=== PATIENT | female | born 1975 | race Caucasian/White ===

== ENCOUNTER 2023-05-21 10:16 | Outpatient (REF) | payer MEDICAID, SELFPAY | END 2023-05-21 10:17 | LOC: LAB 10:16 | PROVIDERS: Visit Provider Obstetrics & Gynecology | DX: A63.0 Anogenital (venereal) warts (principal) | CPT/HCPCS: 88305 ==

== ENCOUNTER 2023-06-01 09:15 | Outpatient (OUT) | payer MEDICAID, SELFPAY ==
--- NOTE | 2023-06-01 09:22 | ECG_ITS ---
[facility] Test Date: 2023-06-01 Pat Name: ITZEL HENRIQUEZ Department: Room: - Gender: Female [employer]: : 1975 Requested By: JIMENA BOYER Order Number: [id number] Reading MD: ARLETTE CESAR Measurements Intervals [place] Rate: 58 P: 59 MD: 205 QRS: 38 QRSD: 97 T: 77 QT: 450 QTc: 444 Interpretive Statements SINUS BRADYCARDIA No previous ECG available for comparison Electronically Signed On 06-04-2023 6:49:06 EDT by ARLETTE CESAR
--- NOTE | 2023-06-01 09:48 | XR_ITS ---
The [address] [address] Patient Name: ITZEL HENRIQUEZ MRN: [id number] date: 1975 Sex: F Assigned Patient Location: [facility] Current Patient Location: [facility] Accession/Order Number: [id number] Exam Date: 06/01/2023 10:00 Report Date: 06/01/2023 12:16 At the request of: JIMENA BOYER Procedure: XR chest 2V EXAM: XR chest 2V HISTORY: Preop exam COMPARISON: None. TECHNIQUE: PA and lateral views of the chest. FINDINGS: The cardiomediastinal silhouette is normal. No focal consolidation is identified. There is no pneumothorax. No pleural effusion is noted. The osseous structures are intact. XR/XR chest 2V IMPRESSION: No acute cardiopulmonary process. Electronically authenticated by: ANIVAL SINGH Date: 06/01/2023 12:16
== END 2023-06-01 09:16 | disposition home or self-care (01) ==
LOC: PST 09:15
PROVIDERS: Visit Provider Obstetrics & Gynecology
DX: Z01.810 Encounter for preprocedural cardiovascular examination (principal); Z01.812 Encounter for preprocedural laboratory examination; R87.610 Atypical squamous cells of undetermined significance on cytologic smear of cervix (ASC-US)
CPT/HCPCS: 71046; 80048; 93005

== ENCOUNTER 2023-06-15 06:03 | Day surgery (SDC) | payer MEDICAID, SELFPAY ==
[2023-06-01 09:56] VITALS: BP 124/78; PULSE 64; TEMP 36.4; O2SAT 94; BMI 41.7
[2023-06-15] VITALS (15 sets, daily range): BP systolic 112–165; BP diastolic 54–101; PULSE 59–84; TEMP 36–36.1; O2SAT 86–96; BMI 41.7
--- OUTSIDE RECORDS SUMMARY | 2023-06-15 06:06 | XMS_ITS | CCD ---
Author Organization [facility] Care Team Providers Care Sap Project Manager Name Role Phone Sudarshan Gill DO Primary Care Provider Claudette Montalvo Primary Care Physician EL VILLALTA Attending Unavailable JIMENA LARKIN Attending Unavailable JIMENA LARKIN Attending Unavailable Jimena Larkin Attending Provider [phone] Elda Mckenna Attending Unavailable Claudette Montalvo Referring Unavailab ROSANA Christopher Admitting Unavailabl e Claudette Montalvo Attending Unavailab le Claudette Montalvo Attending Unavailab le Elda Mckenna Attending Unavailable Mckenna Elda Admitting Unavailable Claudette Montalvo Admitting Unavailab le Claudette Montalvo Attending Unavailab le Jimena Larkin Admitting Unavailable Jimena Larkin Attending Unavailable Allergies Allergy Classification Reported Allergen(s) Allergy Type Date of Onset Reaction(s) Facility (2 sources) Wound Dressing Adhesive Propensity to adverse reactions 4 [facility] (5 sources) Adhesive bandage; Translations: [Adhesive Bandage] Propensity to adverse reactions to substance Eruption of skin (disorder) [facility] (5 sources) traZODone; Translations: [trazodone] Drug Allergy Weal (disorder) [facility] Medications Current Medications Medication Drug Class(es) Dates Sig (Normalized) Sig (Original) [id number] 200 actuat albuterol 0.09 mg/actuat metered dose inhaler (2 sources) beta2-Adrenergic Agonist take 2 puff(s) by inhalation every four hours for wheezing albuterol HFA 90 mcg/act inhaler Inhale 2 puffs every 4 (four) hours if needed for wheezing 0 Active Albuterol (Eqv-ProAir HFA) 90 mcg/inh inhalation aerosol (4 sources) Start: 04-11-2023 take 1 puff(s) by inhalation every six hours Albuterol (Eqv-ProAir HFA) 90 mcg/inh inhalation aerosol 1 puff(s), Inhalation, q6hr, 18 gm, Refill(s) 6, [facility], 166, cm, 04/11/23 14:36:00 EST, Height/Length Dosing, 116.1, kg, 04/11/23 14:36:00 EST, Weight Dosing Start Date: 04/11/23 Status: Ordered amLODIPine 5 mg oral tablet (6 sources) Dihydropyridine Calcium Channel Emiliano Start: 04-11-2023 take 1 tablet by mouth once daily amLODIPine 5 mg Tab 5 mg = 1 tab(s), Oral, Daily, # 90 tab(s), Refills(s) 3, Pharmacy: [facility] 1985, 166, cm, 04/11/23 14:36:00 EST, Height/Length Dosing, 116.1, kg, 04/11/23 14:36:00 EST, Weight Dosing Start Date: 04/11/23 Status: Ordered amLODIPine Besyl ate (NORVASC PO) Take by mouth 0 Active ARIPiprazole 10 mg oral tablet (4 sources) Atypical Antipsychotic Start: 04-11-2023 take 1 tablet by mouth once daily aripiprazole 10 mg Tab 10 mg = 1 tab(s), Oral, Daily, # 90 tab(s), Refills(s) 0, Pharmacy: [facility] 1985, 166, cm, 04/11/23 14:36:00 EST, Height/Length Dosing, 116.1, kg, 04/11/23 14:36:00 EST, Weight Dosing Start Date: 04/11/23 Status: Ordered atorvastatin 80 mg oral tablet (4 sources) HMG-CoA Reductase Inhibitor Start: 04-11-2023 take 1 tablet by mouth once daily atorvastatin 80 mg Tab 80 mg = 1 tab(s), Oral, Daily, # 90 tab(s), Refills(s) 3, Pharmacy: [facility] 1985, 166, cm, 04/11/23 14:36:00 EST, Height/Length Dosing, 116.1, kg, 04/11/23 14:36:00 EST, Weight Dosing Start Date: 04/11/23 Status: Ordered calcium carbonate 1500 mg oral tablet (4 sources) Start: 04-11-2023 take 1 tablet by mouth once daily calcium (as carbonate) 600 mg oral tablet 600 mg = 1 tab(s), Oral, Daily, # 90 tab(s), Refills(s) 3, Pharmacy: [facility] 1986, 166, cm, 04/11/23 14:36:00 EST, Height/Length Dosing, 116.1, kg, 04/11/23 14:36:00 EST, Weight Dosing Start Date: 04/11/23 Status: Ordered DULoxetine 60 mg delayed release oral capsule (4 sources) Serotonin and Norepinephrine Reuptake Inhibitor Start: 04-11-2023 take 2 capsules by mouth once daily duloxetine 60 mg oral delayed release capsule 120 mg = 2 cap(s), Oral, Daily, # 180 cap(s), Refills(s) 0, Pharmacy: [facility] 1986, 166, cm, 04/11/23 14:36:00 EST, Height/Length Dosing, 116.1, kg, 04/11/23 14:36:00 EST, Weight Dosing Start Date: 04/11/23 Status: Ordered fluticasone (4 sources) Corticosteroid Start: 04-11-2023 fluticasone propionate Inhalation, Refills(s) 0 Start Date: 04/11/23 Status: Ordered hydrOXYzine hydrochloride 50 mg oral tablet (4 sources) Antihistamine Start: 04-11-2023 take 1 tablet by mouth three times daily hydrOXYzine hydrochloride 50 mg oral tablet 50 mg = 1 tab(s), Oral, TID, # 270 tab(s), Refills(s) 0, Pharmacy: [facility] 1986, 166, cm, 04/11/23 14:36:00 EST, Height/Length Dosing, 116.1, kg, 04/11/23 14:36:00 EST, Weight Dosing Start Date: 04/11/23 Status: Ordered lysine 1000 mg oral tablet (4 sources) Start: 04-11-2023 take 1 tablet by mouth once daily lysine 1000 mg oral tablet 1,000 mg = 1 tab(s), Oral, Daily, # 60 tab(s), Refills(s) 0 Start Date: 04/11/23 Status: Ordered metFORMIN hydrochloride 500 mg oral tablet (6 sources) Biguanide Start: 04-11-2023 take 1 tablet by mouth twice daily metformin 500 mg Tab 500 mg = 1 tab(s), Oral, BID, # 180 tab(s), Refills(s) 3, Pharmacy: [facility] 1985, 166, cm, 04/11/23 14:36:00 EST, Height/Length Dosing, 116.1, kg, 04/11/23 14:36:00 EST, Weight Dosing Start Date: 04/11/23 Status: Ordered take 1 tablet by mouth in the mo rning metFORMIN (Glucophage) 500 MG tablet Take 500 mg by mouth in the morning and 500 mg in the evening. Take with meals. 0 Active propranolol hydrochloride 40 mg oral tablet (6 sources) beta-Adrenergic Emiliano Start: 04-11-2023 take 1 tablet by mouth twice daily propranolol 40 mg Tab 40 mg = 1 tab(s), Oral, BID, # 180 tab(s), Refills(s) 3, Pharmacy: [facility] 1985, 166, cm, 04/11/23 14:36:00 EST, Height/Length Dosing, 116.1, kg, 04/11/23 14:36:00 EST, Weight Dosing Start Date: 04/11/23 Status: Ordered propranolol (Ind eral) 40 MG tablet Take 20 mg by mouth in the morning and 20 mg before bedtime. 0 Active 60 actuat tiotropium 0.39979 mg/actuat inhalation spray (4 sources) Anticholinergic Start: 04-11-2023 take 2 puff(s) by inhalation once daily Spiriva Respimat 1.25 mcg/inh inhalation aerosol 2 puff(s), Inhalation, Daily, 4 gm, Refill(s) 11, [facility], 166, cm, 04/11/23 14:36:00 EST, Height/Length Dosing, 116.1, kg, 04/11/23 14:36:00 EST, Weight Dosing Start Date: 04/11/23 Status: Ordered triamcinolone acetonide 5 mg/ml topical cream (6 sources) Corticosteroid Start: 04-11-2023 apply 20 g topically twice daily triamcinolone Top 0.5% Crm See Instructions, 20 gm, Refill(s) 0, Topical BID, [facility], 166, cm, 04/11/23 14:36:00 EST, Height/Length Dosing, 116.1, kg, 04/11/23 14:36:00 EST, Weight Dosing Start Date: 04/11/23 Status: Ordered Start: 03-19-2023 End: 03-29-2023 triamcinolone (Kenalog) 0.5 % cream Indications: Dermatitis Apply topically 2 (two) times a day for 10 days Apply to Affected Area Twice per Day 30 g 1 03/19/2023 03/29/2023 Active Vitamin D3 2000 intl units oral tablet (4 sources) Start: 04-11-2023 take 1 tablet by mouth once daily Vitamin D3 2000 intl units oral tablet 50 mcg, Oral, Daily, # 90 tab(s), Refills(s) 3, Pharmacy: [facility] 1986, 166, cm, 04/11/23 14:36:00 EST, Height/Length Dosing, 116.1, kg, 04/11/23 14:36:00 EST, Weight Dosing Start Date: 04/11/23 Status: Ordered Weight Loss Pill/Belly Fat (3 sources) Start: 05-21-2023 Weight Loss Pi ll/Belly Fat Weight Loss Pill/Belly Fat Start Date: 05/21/23 Status: Ordered Problems Problem Classification Problem Date Documented Date Episodic/Chronic Allergic reactions (2 sources) Contact dermatitis; Translations: [Unspecified contact dermatitis, unspecified cause] 03-19-2023 Episodic Anxiety disorders (5 sources) Generalized anxiety disorder; Translations: [Generalized anxiety disorder] Onset: 04-03-2023 Chronic Asthma (5 sources) Asthma; Translations: [Unspecified asthma, uncomplicated] Onset: 04-03-2023 Chronic Chronic obstructive pulmonary disease and bronchiectasis (3 sources) Chronic obstructive lung disease 05-21-2023 Chronic Diabetes mellitus with complications (2 sources) Disorder of nervous system due to type 2 diabetes mellitus; Translations: [Type 2 diabetes mellitus with other diabetic neurological complication] 03-19-2023 Chronic Diabetes mellitus without complication (5 sources) Prediabetes; Translations: [Prediabetes] Onset: 04-11-2023 Episodic Disorders of lipid metabolism (5 sources) Mixed hyperlipidemia; Translations: [Mixed hyperlipidemia] Onset: 04-11-2023 Chronic Essential hypertension (5 sources) Essential hypertension; Translations: [Essential (primary) hypertension] Onset: 04-03-2023 Chronic Mood disorders (5 sources) Severe major depression, single episode, without psychotic features; Translations: [Major depressive disorder, single episode, severe without psychotic features] Onset: 04-11-2023 Chronic Mycoses (2 sources) Onychomycosis; Translations: [Tinea unguium] 03-19-2023 Episodic Other connective tissue disease (2 sources) Pain of toe of left foot; Translations: [Pain in left toe(s)] 03-19-2023 Episodic Other connective tissue disease (2 sources) Pain of toe of right foot; Translations: [Pain in right toe(s)] 03-19-2023 Episodic Other diseases of veins and lymphatics (2 sources) Peripheral venous insufficiency; Translations: [Venous insufficiency (chronic) (peripheral)] 03-19-2023 Episodic Other non-traumatic joint disorders (1 source) Pain of left hip joint; Translations: [Pain in left hip] Onset: 04-11-2023 Episodic Other non-traumatic joint disorders (4 sources) Hip pain 04-11-2023 Episodic Other nutritional; endocrine; and metabolic disorders (5 sources) Body mass index 40+ - severely obese; Translations: [Body mass index (BMI) 40.0-44.9, adult] Onset: 04-11-2023 Chronic Other nutritional; endocrine; and metabolic disorders (5 sources) Morbid obesity; Translations: [Morbid (severe) obesity due to excess calories] Onset: 04-11-2023 Chronic Spondylosis; intervertebral disc disorders; other back problems (5 sources) Low back pain; Translations: [Low back pain, unspecified] Onset: 04-11-2023 Episodic Substance-related disorders (3 sources) Smoker 05-21-2023 Chronic Comment on above: Added secondary to d ocumentation in Social History. Unclassified (4 sources) Patient encounter status 04-03-2023 Results Test Name Value Interpretation Reference Range Facility XR Pelvis 1 or 2 Viewson XR Pelvis 1 or 2 Views Exam Date/Time: 05/28/2023 12:31 EDT Reason for Exam: Pain, Non Traumatic Report IMPRESSION: ADVANCED LEFT HIP OSTEOARTHRITIS. EXAM: XR Pelvis 1 or 2 Views HISTORY: Pelvic pain COMPARISON: None available TECHNIQUE: Single AP film of the pelvis obtained. FINDINGS: No acute displaced pelvic fracture. Sacroiliac joints are within normal limits. Joint space of the right hip is maintained. Advanced degenerative changes of the left hip. Degenerative changes of the lower lumbar spine. Soft tissues appear within normal limits. Ordering Provider: Elda Mckenna FINAL REPORT Dictated: 05/30/2023 3:18 pm Sudarshan Hawk DO Signed (Electronic Signature): 05/30/2023 3:18 pm Signed by: Sudarshan Hawk DO Transcribed by: TERRANCE Technologist: CHRISTOPHER Technical Comments Radiation Dose: Ka,r in mGy = na DAP = na Normal [facility] XR Spine Lumbosacral Minimum 4 Viewson 05-30-2023 XR Spine Lumbosacral Minimum 4 Views Exam Date/Time: 05/28/2023 12:31 EDT Reason for Exam: Back pain Report IMPRESSION: NO ACUTE OSSEOUS ABNORMALITY. DEGENERATIVE CHANGES OF THE LOWER LUMBAR SPINE. EXAMINATION: XR Spine Lumbosacral Minimum 4 Views TECHNIQUE: AP, lateral, bilateral oblique views of the lumbar spine and AP and lateral coned down view of the lumbosacral junction HISTORY: Back pain COMPARISONS: None available. FINDINGS: Lumbar spine alignment is within normal limits. Lumbar vertebral body heights are maintained. Intervertebral disc heights are preserved. Facet arthropathy at L4-5 and L5-S1. No acute fracture. No spondylolysis or spondylolisthesis. Advanced left hip osteoarthritis. Atherosclerotic calcification of the abdominal aorta. Ordering Provider: Elda Mckenna FINAL REPORT Dictated: 05/30/2023 3:17 pm Sudarshan Hawk DO Signed (Electronic Signature): 05/30/2023 3:17 pm Signed by: Sudarshan Hawk DO Transcribed by: TERRANCE Technologist: CHRISTOPHER Technical Comments Radiation Dose: Ka,r in mGy = na DAP = na Normal [facility] CBC w/ Auto Diffon 4 Basophils/100 WBC (Bld) 0.8 % Normal 0.0-2.0 [facility] Comment on above: Performed By: #### 2 907558, [id number], 384729279, 0590019, 6194545, 33619131, 659448699 ####[facility] [address] [place] [address] Basophils/Leukocytes Auto (Bld) [Pure # fraction] 0.1 E9/L Normal 0.0-0.2 [facility] Comment on above: Performed By: #### 2 118318, 73441762, 014591254, 3019424, 7241485, 82232127, 454812846 ####[address] [address] Eosinophils (Bld) [#/Vol] 0.7 E9/L High 0.0-0.5 [facility] Comment on above: Performed By: #### 2 807270, 53226297, 622452955, 4497782, 8071773, 82556305, 533846526 ####[address] [address] Eosinophils/100 WBC (Bld) 7.4 % Normal 0.0-8.0 [facility] Comment on above: Performed By: #### 2 387690, 51589005, 262318501, 6244689, 9794065, 91466393, 985736165 ####[address] [address] Erythrocyte distribution width (RBC) [Ratio] 14.8 % High 10.9-14.2 [facility] Comment on above: Performed By: #### 2 102344, 60741521, 151275407, 3015447, 6436639, 43330807, 160135996 ####[address] [address] Hematocrit (Bld) [Volume fraction] 39.6 % Normal 34.0-46.0 [facility] Comment on above: Performed By: #### 2 592942, 43259158, 583104757, 2070491, 1408286, 49745113, 968261930 ####[address] [address] Hemoglobin (Bld) [Mass/Vol] 12.8 g/dL Normal 12.0-16.0 [facility] Comment on above: Performed By: #### 2 126188, 33852021, 910746266, 7818085, 3616098, 21077119, 784612988 ####[facility] [address] [place] [address] Lymphocytes (Bld) [#/Vol] 3.2 E9/L Normal 1.0-4.0 [facility] Comment on above: Performed By: #### 2 803368, 51761611, 568892779, 3152756, 2599868, 14697266, 000057637 ####[facility] [address] [place] [address] Lymphocytes/100 WBC (Bld) 31.7 % Normal 14.0-50.0 [facility] Comment on above: Performed By: #### 2 733999, 00377632, 132841167, 3638821, 7073297, 89815791, 758054747 ####[address] [address] MCH (RBC) [Entitic mass] 27.0 pg Normal 27.0-34.0 [facility] Comment on above: Performed By: #### 2 582290, 12971204, 427704062, 9135106, 7193704, 18508926, 134578687 ####[address] [address] MCHC (RBC) [Mass/Vol] 32.4 g/dL Normal 31.4-36.0 [facility] Comment on above: Performed By: #### 2 676201, 00036564, 726128114, 6526274, 3506818, 07000225, 346122709 ####[address] [place] [address] MCV (RBC) [Entitic vol] 83.4 fL Normal 80.0-100.0 [facility] Comment on above: Performed By: #### 2 178239, 12907491, 780634111, 8694640, 6456649, 09552719, 219869899 ####[address] [place] [address] Monocytes (Bld) [#/Vol] 0.5 E9/L Normal 0.2-1.0 [facility] Comment on above: Performed By: #### 2 922597, 46284290, 368140488, 5221533, 7381781, 12555779, 457773954 ####[address] [address] Neutrophils (Bld) [#/Vol] 5.6 E9/L Normal 2.0-7.5 [facility] Comment on above: Performed By: #### 2 935733, 53706835, 781846166, 4398173, 0719534, 09874277, 239207367 ####[address] [address] Neutrophils/100 WBC (Bld) 55.0 % Normal 36.0-75.0 [facility] Comment on above: Performed By: #### 2 723872, 65841267, 606091511, 2432597, 1534296, 43198074, 706837124 ####[address] [address] Platelet mean volume (Bld) [Entitic vol] 8.2 fL Normal 6.4-10.8 [facility] Comment on above: Performed By: #### 2 727624, 20889577, 258491066, 5372453, 5861475, 02334088, 738280017 ####[address] [place] [address] Platelets (Bld) [#/Vol] 326.0 E9/L Normal 150.0-500.0 [facility] Comment on above: Performed By: #### 2 361167, 11883799, 157740424, 0035484, 3426237, 15402145, 285930053 ####[address] [place] [address] RBC (Bld) [#/Vol] 4.8 E12/L Normal 4.3-5.9 [facility] Comment on above: Performed By: #### 2 052500, 64925076, 244073136, 3540424, 2733697, 92288379, 221654044 ####[facility] [address] [place] [address] WBC corrected for nucl RBC Auto (Bld) [#/Vol] 10.1 E9/L Normal 4.0-11.0 [facility] Comment on above: Performed By: #### 2 922476, 39452999, 450506782, 3589071, 3734285, 23961197, 975238437 ####[facility] [address] [place] [address] CHEMISTRYOrdered By: SYSTEM SYSTEM on 05-28-2023 25-hydroxyvitamin D3 [Mass/Vol] 30.6 ng/mL Normal 30.0 - 100.0 ng/mL [facility] Chem Albumin [Mass/Vol] 3.7 g/dL Normal 3.3 - 5.0 gm/dL [facility] Albumin/Globulin [Mass ratio] 1.2 {ratio} Normal 1.1 - 2.2 [facility] ALP [Catalytic activity/Vol] 100 [iU]/d High 21 - 98 Int._Unit/L [facility] ALT No additional P-5'-P [Catalytic activity/Vol] 29 [iU]/d Normal 6 - 46 Int._Unit/L [facility] Anion gap [Moles/Vol] 13 mmol/L Normal 6 - 16 mEq/L R emisol Chem AST [Catalytic activity/Vol] 18 [iU]/d Normal 5 - 43 Int._Unit/L [facility] Bilirubin [Mass/Vol] 0.4 mg/dL Normal 0.0 - 1 .1 mg/dL [facility] Calcium [Mass/Vol] 8.6 mg/dL Low 8.9 - 11. 1 mg/dL [facility] Chloride [Moles/Vol] 101 mmol/L Normal 101 - 1 11 mmol/L [facility] Cholesterol [Mass/Vol] 121 mg/dL Normal 120 - 200 mg/dL [facility] Cholesterol in HDL [Mass/Vol] 53 mg/dL Invalid Interpretation Code [facility] Comment on above: Result Comment: '>= 60 LOW RISK' '<= 40 HIGH RISK' Cholesterol in LDL [Mass/Vol] 56 mg/dL Normal <=129mg/dL [facility] Cholesterol in VLDL [Mass/Vol] 32 mg/dL Normal 7 - 40 mg/dL [facility] CO2 [Moles/Vol] 26 mmol/L Normal 21 - 31 mmol/L [facility] Creatinine [Mass/Vol] 0.8 mg/dL Normal 0.5 - 1.3 mg/dL [facility] eGFR 91 mL/min/1.73 m2 Normal >=59mL/min /1. 73 m2 [facility] Globulin (S) [Mass/Vol] 3.0 g/dL Normal 1.4 - 4.0 gm/dL [facility] Glucose [Mass/Vol] 81 mg/dL Normal 55 - 199 mg/dL [facility] Potassium [Moles/Vol] 3.9 mmol/L Normal 3.5 - 5.3 mmol/L [facility] Protein [Mass/Vol] 6.7 g/dL Normal 6.0 - 7.8 gm/dL [facility] Sodium [Moles/Vol] 136 mmol/L Normal 135 - 145 mmol/L [facility] Triglyceride [Mass/Vol] 158 mg/dL High <=149mg/dL [facility] TSH Qn 1.07 m[IU]/L Normal 0.34 - 5.60 mcIU/mL [facility] Urea nitrogen [Mass/Vol] 9 mg/dL Normal 5 - 21 mg/dL [facility] Urea nitrogen/Creatinine [Mass ratio] 11 mg/mg Normal 10 - 20 [facility] CHEMISTRYOrdered By: Tonie Finnegan on 05-28-2023 HbA1c (Bld) [Mass fraction] 5.7 % Normal <=5.9% [facility] ChemAutoSS CMPon 05-28-2023 Albumin [Mass/Vol] 3.7 g/dL Normal 3.3-5.0 [facility] Comment on above: Performed By: #### 2 568313, 23361026, 818613032, 2573784, 9076575, 79406229, 071186946 ####[facility] [address] [place] [address] Albumin/Globulin (S) [Mass conc ratio] 1.2 Normal 1.1-2.2 [facility] Comment on above: Performed By: #### 2 613668, 29284094, 616163427, 9065072, 4252248, 12074428, 715792527 ####[facility] [address] [place] [address] ALP [Catalytic activity/Vol] 100 Int._Unit/L High 21-98 [facility] Comment on above: Performed By: #### 2 376381, 65210784, 241000201, 0758007, 5540126, 40254232, 221357162 ####[facility] [address] [place] [address] ALT No additional P-5'-P [Catalytic activity/Vol] 29 Int._Unit/L Normal 6-46 [facility] Comment on above: Performed By: #### 2 374622, 40931989, 096712387, 2373107, 8292886, 19988503, 689039094 ####[facility] [address] [place] [address] Anion gap [Moles/Vol] 13 mmol/L Normal 6-16 [facility] Comment on above: Performed By: #### 2 757537, 47893081, 845437918, 9900161, 9620391, 48770461, 183985270 ####[facility] [address] [place] [address] AST [Catalytic activity/Vol] 18 Int._Unit/L Normal 5-43 [facility] Comment on above: Performed By: #### 2 262220, 86456315, 346982111, 3697497, 3987049, 08658300, 157751033 ####[facility] [address] [place] [address] Bilirubin [Mass/Vol] 0.4 mg/dL Normal 0.0-1.1 [facility] Comment on above: Performed By: #### 2 484258, 43030089, 110934645, 0983244, 5803688, 49478711, 598788883 ####[facility] [address] [place] [address] Calcium [Mass/Vol] 8.6 mg/dL Low 8.9-11.1 [facility] Comment on above: Performed By: #### 2 136223, 18055033, 338023136, 4284071, 2301930, 69308828, 551749709 ####[facility] [address] [place] [address] Chloride [Moles/Vol] 101 mmol/L Normal 101-111 [facility] Comment on above: Performed By: #### 2 434698, 04595785, 332321574, 8566723, 8630231, 42511502, 879387728 ####[facility] [address] [place] [address] CO2 [Moles/Vol] 26 mmol/L Normal 21-31 [facility] Comment on above: Performed By: #### 2 478072, 86630747, 196080414, 7466304, 6716229, 70070602, 757132966 ####[facility] [address] [place] [address] Creatinine [Mass/Vol] 0.8 mg/dL Normal 0.5-1.3 [facility] Comment on above: Performed By: #### 2 221458, 59817329, 714368804, 4082963, 0423536, 14745268, 371771427 ####[facility] [address] [place] [address] Globulin (S) [Mass/Vol] 3.0 g/dL Normal 1.4-4.0 [facility] Comment on above: Performed By: #### 2 790296, 13336243, 573004011, 6812237, 4820859, 81095434, 917043670 ####[facility] [address] [place] [address] Glucose [Mass/Vol] 81 mg/dL Normal 55-199 [facility] Comment on above: Performed By: #### 2 825281, 30541581, 648774491, 8133744, 7216078, 30185173, 244014599 ####[facility] [address] [place] [address] Potassium [Moles/Vol] 3.9 mmol/L Normal 3.5-5.3 [facility] Comment on above: Performed By: #### 2 881645, 53119586, 768091640, 5892877, 6189485, 37883194, 771795745 ####[facility] [address] [place] [address] Protein [Mass/Vol] 6.7 g/dL Normal 6.0-7.8 [facility] Comment on above: Performed By: #### 2 141090, 26398910, 839654547, 0225667, 6705425, 92374205, 066152381 ####[facility] [address] [place] [address] Sodium [Moles/Vol] 136 mmol/L Normal 135-145 [facility] Comment on above: Performed By: #### 2 509541, 03590388, 457278904, 3266701, 1794250, 31690291, 034277860 ####[facility] [address] [place] [address] Urea nitrogen [Mass/Vol] 9 mg/dL Normal 5-21 [facility] Comment on above: Performed By: #### 2 689533, 21166915, 491149690, 7273076, 5206769, 03365903, 572442200 ####[facility] [address] [place] [address] Urea nitrogen/Creatinine [Mass ratio] 11 No Units Normal 10-20 [facility] Comment on above: Performed By: #### 2 621960, 16286220, 989500832, 2618221, 5860849, 30954485, 550693072 ####[facility] [address] [place] [address] Consent for Treatmenton 05-07 Consent for Treatment [id number] 99#1.00TIFF Normal [facility] Consent for Treatment [id number] 60#1.00TIFF Normal [facility] HEMATOLOGYOrdered By: SYSTEM SYSTEM on 05-28-2023 Basophils/100 WBC (Bld) 0.8 % Normal 0.0 - 2.0 % [facility] Heme Basophils/Leukocytes Auto (Bld) [Pure # fraction] 0.1 E9/L Normal 0.0 - 0.2 E9/L [facility] Heme Eosinophils (Bld) [#/Vol] 0.7 E9/L High 0.0 - 0.5 E9/L [facility] Heme Eosinophils/100 WBC (Bld) 7.4 % Normal 0.0 - 8.0 % [facility] Heme Erythrocyte distribution width (RBC) [Ratio] 14.8 % High 10.9 - 14.2 % Remisol Heme Hematocrit (Bld) [Volume fraction] 39.6 % Normal 34.0 - 46.0 % Remisol Heme Hemoglobin (Bld) [Mass/Vol] 12.8 g/dL Normal 12.0 - 16.0 gm/dL Remisol Heme Lymphocytes (Bld) [#/Vol] 3.2 E9/L Normal 1.0 - 4.0 E9/L Remisol Heme Lymphocytes/100 WBC (Bld) 31.7 % Normal 14.0 - 50.0 % Remisol Heme MCH (RBC) [Entitic mass] 27.0 pg Normal 27.0 - 34.0 pg Remisol Heme MCHC (RBC) [Mass/Vol] 32.4 g/dL Normal 31.4 - 36.0 gm/dL Remisol Heme MCV (RBC) [Entitic vol] 83.4 fL Normal 80.0 - 100.0 fL Remisol Heme Monocytes (Bld) [#/Vol] 0.5 E9/L Normal 0.2 - 1.0 E9/L Remisol Heme Monocytes/100 WBC (Bld) 5.1 % Normal 4.0 - 14.0 % Remisol Heme Neutrophils (Bld) [#/Vol] 5.6 E9/L Normal 2.0 - 7.5 E9/L Remisol Heme Neutrophils/100 WBC (Bld) 55.0 % Normal 36.0 - 75.0 % Remisol Heme Platelet mean volume (Bld) [Entitic vol] 8.2 fL Normal 6.4 - 10.8 fL Remisol Heme Platelets (Bld) [#/Vol] 326.0 E9/L Normal 150.0 - 500.0 E9/L Remisol Heme RBC (Bld) [#/Vol] 4.8 E12/L Normal 4.3 - 5.9 E12/L Remisol Heme WBC corrected for nucl RBC Auto (Bld) [#/Vol] 10.1 E9/L Normal 4.0 - 11.0 E9/L Remisol Heme EypA1ndy 05-28-2023 HbA1c (Bld) [Mass fraction] 5.7 % Normal <=5.9 [facility] Comment on above: Performed By: #### 2 [id number], [id number], [id number], 0107694, 6798922, 87647316, [id number] ####[facility] [address] [place] [address] Lipid Panelon 05-28-2023 Cholesterol [Mass/Vol] 121 mg/dL Normal 120-200 [facility] Comment on above: Performed By: #### 2 463029, [id number], [id number], 2291059, 9148843, [id number], [id number] ####[facility] [address] [place] [address] Cholesterol in HDL [Mass/Vol] 53 mg/dL Invalid Interpretation Code [facility] Comment on above: Result Comment: '>= 60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 and Physical Activity Physical activity is an important part of a healthy lifestyle. If you have asthma, it is important to exercise because physical activity can help you to: Control your asthma. Maintain your weight or lose weight. Increase your energy. Decrease stress and anxiety. Lower your risk of getting sick. Improve your heart health. However, asthma symptoms can flare up when you are physically active or exercising. You can learn how to control your asthma and prevent symptoms during exercise. This will help you remain physicallyactive. How can asthma affect my ability to be physically active? When you have asthma, physical activity can cause you to have symptoms such as: Wheezing. This may sound like whistling while breathing. A feeling of tightness in the chest, or chest pain. A sore throat. Coughing. Shortness of breath. Tiredness (fatigue) with minimal activity. Increased sputum production. What actions can I take to prevent asthma problems during physical activity? Start by sticking to your daily asthma medicine regimen. Keeping your asthma under control will allow you to enjoy exercise and sports participation. Asthma action plan Follow the asthma action plan set by your health care provider. Your personal asthma plan may include: Taking your daily controller (maintenance) asthma medicines as told by your health care provider. Using your rescue inhaler before exercise as told by your health care provider. Avoiding your asthma triggers, except physical activity. Triggers may include cold air, dust, pollen, pet dander, and air pollution. Being aware of worsening symptoms. Tracking your asthma control. Using a peak flow meter. Knowing when to seek emergency care. Proper breathing During exercise, follow these tips for proper breathing: Breathe in before starting the exercise and breathe out during the part of the exercise that takes the most effort. Take slow breaths. Pace yourself. Do not try to go too fast. While breathing out, purse your lips. Before beginning any exercise program or new activity, talk with your health care provider. Pulmonary rehabilitation Ask your health care provider about signing up for a pulmonary rehabilitation program. Benefits of this type of program include: Education on lung diseases. Classes that teach you how to exercise and be more active while decreasing your shortness of breath. A group setting that allows you to talk with others who have asthma. General information Exercise indoors when the air is dry or during allergy season. Try to breathe in warm, moist air by wearing a scarf loosely over your nose and mouth or breathing only through your nose. Spend a few minutes warming up before you exercise or begin an activity or workout. Cool down after exercise. What should I do if my asthma symptoms get worse? Contact your health care provider if your asthma symptoms are getting worse. Your asthma is gettingworse if: You have symptoms more often. Your symptoms are more severe. Your symptoms get worse at night and make you lose sleep. Your peak flow number is lower than your personal best or changes from day to day. Your asthma medicines do not work as well as they used to. You use your rescue inhaler more often. If you use your rescue inhaler more than 2 days a week, your asthma is not well controlled. You go to the emergency room or see your health care provider because of an asthma attack. Where can I get more information? Ask your health care provider about asthma support groups in your area. [place] [employer]: lung.org National Heart, Lung, and Blood [place]: nhlbi.nih.gov Centers for Disease Control and Prevention: cdc.gov Contact a health care provider if: You have trouble walking and talking because you are out of breath. Get help right away if: Your lips or fingernails are blue. You are not able to breathe or catch your breath. These symptoms may represent a serious problem that is an emergency. Do not wait to see if the symptoms will go away. Get medical help right away. Call your local emergency services (911 in the [place] Do not drive yourself to the hospital. Summary Physical activity is an important part of a healthy lifestyle. However, if you have asthma, your symptoms can flare up during exercise or physical activity. You can prevent problems during physical activity by following your asthma action plan, doing proper breathing, and enrolling in a pulmonary rehabilitation program. Talk with your health care provider before starting any exercise program or new activity. This information is not intended to replace advice given to you by your health care provider. Make sure you discuss any questions you have with your health care provider. Document Revised: 03/14/2021 Document Reviewed: 03/14/2021 [employer] Patient Education 2022 [employer]. 04/03/2023 10:06:24 Asthma Action Plan, Adult Asthma Action Plan, Adult An asthma action plan helps you understand how to manage your asthma and what to do when you have an asthma attack. The action plan is a color-coded plan that lists the symptoms that indicate whetheror not your condition is under control and what actions to take. If you have symptoms in the green zone, you are doing well. If you have symptoms in the yellow zone, you are having problems. If you have symptoms in the red zone, you need medical care right away. Follow the plan that you and your health care provider develop. Review your plan with your health care provider at each visit. What triggers your asthma? Knowing the things that can trigger an asthma attack or make your asthma symptoms worse is very important. Talk to your health care provider about your asthma triggers and how to avoid them. Record your known asthma triggers here: What is your personal best peak flow reading? If you use a peak flow meter, determine your personal best reading. Record it here: Green zone This zone means that your asthma is under control. You may not have any symptoms while you are in the green zone. This means that you: Have no coughing or wheezing, even while you are working or playing. Sleep through the night. Are breathing well. Have a peak flow reading that is above (80% of your personal best or greater). If you are in the green zone, continue to manage your asthma as directed. Take these medicines every day: ?Controller medicine and dosage: ?Controller medicine and dosage: ?Controller medicine and dosage: ?Controller medicine and dosage: Before exercise, use this reliever or rescue medicine: Call your health care provider if you are using a reliever or rescue medicine more than 2 3 times aweek. Yellow zone Symptoms in this zone mean that your condition may be getting worse. You may have symptoms that interfere with exercise, are noticeably worse after exposure to triggers, or are worse at the first sign of a cold (upper respiratory infection). These may include: Waking from sleep. Coughing, especially at night or first thing in the morning. Mild wheezing. Chest tightness. A peak flow reading that is to (50 79% of your personal best). If you have any of these symptoms: Add the following medicine to the ones that you use daily: ?Reliever or rescue medicine and dosage: ?Additional medicine and dosage: Call your health care provider if: You remain in the yellow zone for hours. You are using a reliever or rescue medicine more than 2 3 times a week. Red zone Symptoms in this zone mean that you should get medical help right away. You will likely feel distressed and have symptoms at rest that restrict your activity. You are in the red zone if: You are breathing hard and quickly. Your nose opens wide, your ribs show, and your neck muscles become visible when you breathe in. Your lips, fingers, or toes are a bluish color. You have trouble speaking in full sentences. Your peak flow reading is less than (less than 50% of your personal best). Your symptoms do not improve within 15 20 minutes after you use your reliever or rescue medicine (bronchodilator). If you have any of these symptoms: These symptoms represent a serious problem that is an emergency. Do not wait to see if the symptomswill go away. Get medical help right away. Call your local emergency services (911 in the [place] Donot drive yourself to the hospital. Use your reliever or rescue medicine. ?Start a nebulizer treatment or take 2 4 puffs from a metered-dose inhaler with a spacer. ?Repeat this action every 15 20 minutes until help arrives. Where to find more information You can find more information about asthma from: Centers for Disease Control and Prevention: www.cdc.gov [place] [employer]: www.lung.org This information is not intended to replace advice given to you by your health care provider. Make sure you discuss any questions you have with your health care provider. Document Revised: 03/17/2021 Document Reviewed: 03/17/2021 [employer] Patient Education 2022 [employer]. 04/03/2023 10:06:20 Hypertension, Adult Hypertension, Adult High blood pressure (hypertension) is when the force of blood pumping through the arteries is too strong. The arteries are the blood vessels that carry blood from the heart throughout the body. Hypertension forces the heart to work harder to pump blood and may cause arteries to become narrow or stiff. Untreated or uncontrolled hypertension can lead to a heart attack, heart failure, a stroke, kidney disease, and other problems. A blood pressure reading consists of a higher number over a lower number. Ideally, your blood pressure should be below 120/80. The first ( top ) number is called the systolic pressure. It is a measure of the pressure in your arteries as your heart beats. The second ( bottom ) number is called the diastolic pressure. It is a measure of the pressure in your arteries as the heart relaxes. What are the causes? The exact cause of this condition is not known. There are some conditions that result in high bloodpressure. What increases the risk? Certain factors may make you more likely to develop high blood pressure. Some of these risk factorsare under your control, including: Smoking. Not getting enough exercise or physical activity. Being overweight. Having too much fat, sugar, calories, or salt (sodium) in your diet. Drinking too much alcohol. Other risk factors include: Having a personal history of heart disease, diabetes, high cholesterol, or kidney disease. Stress. Having a family history of high blood pressure and high cholesterol. Having obstructive sleep apnea. Age. The risk increases with age. What are the signs or symptoms? High blood pressure may not cause symptoms. Very high blood pressure (hypertensive crisis) may cause: Headache. Fast or irregular heartbeats (palpitations). Shortness of breath. Nosebleed. Nausea and vomiting. Vision changes. Severe chest pain, dizziness, and seizures. How is this diagnosed? This condition is diagnosed by measuring your blood pressure while you are seated, with your arm resting on a flat surface, your legs uncrossed, and your feet flat on the floor. The cuff of the bloodpressure monitor will be placed directly against the skin of your upper arm at the level of your heart. Blood pressure should be measured at least twice using the same arm. Certain conditions can cause a difference in blood pressure between your right and left arms. If you have a high blood pressure reading during one visit or you have normal blood pressure with other risk factors, you may be asked to: Return on a different day to have your blood pressure checked again. Monitor your blood pressure at home for 1 week or longer. If you are diagnosed with hypertension, you may have other blood or imaging tests to help your health care provider understand your overall risk for other conditions. How is this treated? This condition is treated by making healthy lifestyle changes, such as eating healthy foods, exercising more, and reducing your alcohol intake. You may be referred for counseling on a healthy diet and physical activity. Your health care provider may prescribe medicine if lifestyle changes are not enough to get your blood pressure under control and if: Your systolic blood pressure is above 130. Your diastolic blood pressure is above 80. Your personal target blood pressure may vary depending on your medical conditions, your age, and other factors. Follow these instructions at home: Eating and drinking Eat a diet that is high in fiber and potassium, and low in sodium, added sugar, and fat. An exampleof this eating plan is called the DASH diet. DASH stands for Dietary Approaches to Stop Hypertension. To eat this way: ?Eat plenty of fresh fruits and vegetables. Try to fill one half of your plate at each meal with fruits and vegetables. ?Eat whole grains, such as whole-wheat pasta, brown rice, or whole-grain bread. Fill about one fourth of your plate with whole grains. ?Eat or drink low-fat dairy products, such as skim milk or low-fat yogurt. ?Avoid fatty cuts of meat, processed or cured meats, and poultry with skin. Fill about one fourth of your plate with lean proteins, such as fish, chicken without skin, beans, eggs, or tofu. ?Avoid pre-made and processed foods. These tend to be higher in sodium, added sugar, and fat. Reduce your daily sodium intake. Many people with hypertension should eat less than 1,500 mg of sodium a day. Do not drink alcohol if: ?Your health care provider tells you not to drink. ?You are , may be , or are planning to become . If you drink alcohol: ?Limit how much you have to: ?0 1 drink a day for women. ?0 2 drinks a day for men. ?Know how much alcohol is in your drink. In the [place] one drink equals one 12 oz bottle of beer (355 mL), one 5 oz glass of wine (148 mL), or one 1 oz glass of hard liquor (44 mL). Lifestyle Work with your health care provider to maintain a healthy body weight or to lose weight. Ask what an ideal weight is for you. Get at least 30 minutes of exercise that causes your heart to beat faster (aerobic exercise) most days of the week. Activities may include walking, swimming, or biking. Include exercise to strengthen your muscles (resistance exercise), such as Pilates or lifting weights, as part of your weekly exercise routine. Try to do these types of exercises for 30 minutes at least 3 days a week. Do not use any products that contain nicotine or tobacco. These products include cigarettes, chewing tobacco, and vaping devices, such as e-cigarettes. If you need help quitting, ask your health careprovider. Monitor your blood pressure at home as told by your health care provider. Keep all follow-up visits. This is important. Medicines Take sjqu-[id number]-[id number] and prescription medicines only as told by your health care provider. Follow directions carefully. Blood pressure medicines must be taken as prescribed. Do not skip doses of blood pressure medicine. Doing this puts you at risk for problems and can makethe medicine less effective. Ask your health care provider about side effects or reactions to medicines that you should watch for. Contact a health care provider if you: Think you are having a reaction to a medicine you are taking. Have headaches that keep coming back (recurring). Feel dizzy. Have swelling in your ankles. Have trouble with your vision. Get help right away if you: Develop a severe headache or confusion. Have unusual weakness or numbness. Feel faint. Have severe pain in your chest or abdomen. Vomit repeatedly. Have trouble breathing. These symptoms may be an emergency. Get help right away. Call 911. Do not wait to see if the symptoms will go away. Do not drive yourself to the hospital. Summary Hypertension is when the force of blood pumping through your arteries is too strong. If this condition is not controlled, it may put you at risk for serious complications. Your personal target blood pressure may vary depending on your medical conditions, your age, and other factors. For most people, a normal blood pressure is less than 120/80. Hypertension is treated with lifestyle changes, medicines, or a combination of both. Lifestyle changes include losing weight, eating a healthy, low-sodium diet, exercising more, and limiting alcohol. This information is not intended to replace advice given to you by your health care provider. Make sure you discuss any questions you have with your health care provider. Document Revised: 11/29/2021 Document Reviewed: 11/29/2021 [employer] Patient Education 2022 [employer]. 04/03/2023 10:06:15 Blood Glucose Monitoring, Adult Blood Glucose Monitoring, Adult Monitoring your blood sugar (glucose) is an important part of managing your diabetes. Blood glucosemonitoring involves checking your blood glucose as often as directed and keeping a log or record ofyour results over time. Checking your blood glucose regularly and keeping a blood glucose log can: Help you and your health care provider adjust your diabetes management plan as needed, including your medicines or insulin. Help you understand how food, exercise, illnesses, and medicines affect your blood glucose. Let you know what your blood glucose is at any time. You can quickly find out if you have low bloodglucose (hypoglycemia) or high blood glucose (hyperglycemia). Your health care provider will set individualized treatment goals for you. Your goals will be basedon your age, other medical conditions you have, and how you respond to diabetes treatment. Generally, the goal of treatment is to maintain the following blood glucose levels: Before meals (preprandial): 80 130 mg/dL (4.4 7.2 mmol/L). After meals (postprandial): below 180 mg/dL (10 mmol/L). A1C level: less than 7%. Supplies needed: Blood glucose meter. Test strips for your meter. Each meter has its own strips. You must use the strips that came with your meter. A needle to prick your finger (lancet). Do not use a lancet more than one time. A device that holds the lancet (lancing device). A journal or log book to write down your results. How to check your blood glucose Checking your blood glucose 1.Wash your hands for at least 20 seconds with soap and water. 2.Prick the side of your finger (not the tip) with the lancet. Do not use the same finger consecutively. 3.Gently rub the finger until a small drop of blood appears. 4.Follow instructions that come with your meter for inserting the test strip, applying blood to thestrip, and using your blood glucose meter. 5.Write down your result and any notes in your log. Using alternative sites Some meters allow you to use areas of your body other than your finger (alternative sites) to test your blood. The most common alternative sites are the forearm, the thigh, and the palm of your hand. Alternative sites may not be as accurate as the fingers because blood flow is slower in those areas. This means that the result you get may be delayed, and it may be different from the result that you would get from your finger. Use the finger only, and do not use alternative sites, if: You think you have hypoglycemia. You sometimes do not know that your blood glucose is getting low (hypoglycemia unawareness). General tips and recommendations Blood glucose log Every time you check your blood glucose, write down your result. Also write down any notes about things that may be affecting your blood glucose, such as your diet and exercise for the day. This information can help you and your health care provider: ?Look for patterns in your blood glucose over time. ?Adjust your diabetes management plan as needed. Check if your meter allows you to download your records to a computer or if there is an olvin for [employer]. Most glucose meters store a record of glucose readings in the meter. If you have type 1 diabetes: Check your blood glucose 4 or more times a day if you are on intensive insulin therapy with multiple daily injections (MDI) or if you are using an insulin pump. Check your blood glucose: ?Before every meal and snack. ?Before bedtime. Also check your blood glucose: ?If you have symptoms of hypoglycemia. ?After treating low blood glucose. ?Before doing activities that create a risk for injury, like driving or using machinery. ?Before and after exercise. ?Two hours after a meal. ?Occasionally between 2:00 a.m. and 3:00 a.m., as directed. You may need to check your blood glucose more often, 6 10 times per day, if: ?You have diabetes that is not well controlled. ?You are ill. ?You have a history of severe hypoglycemia. ?You have hypoglycemia unawareness. If you have type 2 diabetes: Check your blood glucose 2 or more times a day if you take insulin or other diabetes medicines. Check your blood glucose 4 or more times a day if you are on intensive insulin therapy. Occasionally, you may also need to check your glucose between 2:00 a.m. and 3:00 a.m., as directed. Also check your blood glucose: ?Before and after exercise. ?Before doing activities that create a risk for injury, like driving or using machinery. You may need to check your blood glucose more often if: ?Your medicine is being adjusted. ?Your diabetes is not well controlled. ?You are ill. General tips Make sure you always have your supplies with you. After you use a few boxes of test strips, adjust (calibrate) your blood glucose meter by following instructions that came with your meter. If you have questions or need help, all blood glucose meters have a 24-hour hotline phone number available that you can call. Also contact your health care provider with questions or concerns you mayhave. Where to find more information The [place] [employer]: www.diabetes.org The Association of [employer] Education Specialists: www.diabeteseducator.org Contact a health care provider if: Your blood glucose is at or above 240 mg/dL (13.3 mmol/L) for 2 days in a row. You have been sick or have had a fever for 2 days or longer, and you are not getting better. You have any of the following problems for more than 6 hours: ?You cannot eat or drink. ?You have nausea or vomiting. ?You have diarrhea. Get help right away if: Your blood glucose is lower than 54 mg/dL (3 mmol/L). You become confused, or you have trouble thinking clearly. You have difficulty breathing. You have moderate or large ketone levels in your urine. These symptoms may represent a serious problem that is an emergency. Do not wait to see if the symptoms will go away. Get medical help right away. Call your local emergency services (911 in the [place] Do not drive yourself to the hospital. Summary Monitoring your blood glucose is an important part of managing your diabetes. Blood glucose monitoring involves checking your blood glucose as often as directed and keeping a log or record of your results over time. Your health care provider will set individualized treatment goals for you. Your goals will be basedon your age, other medical conditions you have, and how you respond to diabetes treatment. Every time you check your blood glucose, write down your result. Also, write down any notes about things that may be affecting your blood glucose, such as your diet and exercise for the day. This information is not intended to replace advice given to you by your health care provider. Make sure you discuss any questions you have with your health care provider. Document Revised: 10/20/2020 Document Reviewed: 10/20/2020 [employer] Patient Education 2022 [employer]. Follow Up Care 03/06/2023 10:50:51 With:Claudette Rowan Address: [address] [place] [address] [place] [address]- When:Within 6 Month(s) Comments:f/u preDM, HTN, ENA/MDD [facility] 02-12-2024 History of Present illness Narrative* El Villalta DPM FACFAS - 03/19/2023 10:40 AM EST Images from the original note were not included. patient: Itzel Samuel : 1975 PCP: Sudarshan Gill, DO SUBJECTIVE This is a 47 y.o. female diabetic patient presents today chief complaint of painful elongated nailsdigits 1 through 10 the cause marked limitation in ambulation due to pain and pressure from shoe gear. The patient states he has been attempting to control his blood glucose levels with regular visits to his primary care physician. Patient is also complaining of bilateral dry scaly skin itches at times and occasionally fissures Allergies: Allergies Allergen Reactions Pedi-Pre Tape [place] [Wound Dressing Adhesive] Rash Past Medical History: Past Medical History: Diagnosis Date Diabetes mellitus ([facility]) Hypertension ([facility]) Medications: Current Outpatient Medications: albuterol HFA 90 mcg/act inhaler, Inhale 2 puffs every 4 (four) hours if needed for wheezing, Disp:, Rfl: amLODIPine Besylate (NORVASC PO), Take by mouth, Disp: , Rfl: metFORMIN (Glucophage) 500 MG tablet, Take 500 mg by mouth in the morning and 500 mg in the evening. Take with meals., Disp: , Rfl: propranolol (Inderal) 40 MG tablet, Take 20 mg by mouth in the morning and 20 mg before bedtime., Disp: , Rfl: triamcinolone (Kenalog) 0.5 % cream, Apply topically 2 (two) times a day for 10 days Apply to Affected Area Twice per Day, Disp: 30 g, Rfl: 1 Review of systems: Constitutional: Denies fever, chills, nausea, vomiting GI: Denies abdominal pain, cramping, loose stool, gastric ulcers Musculoskeletal: Denies low back pain, knee pain, systemic arthritis Neurologic: Denies burning, tingling, transient paralysis OBJECTIVE Physical Examination: DERM: Positive hair growth to b/l feet with good skin turgor noted. Negative openings in skin. No macerations noted interdigitally. Web spaces were clean and dry. No ulcerations were noted. Mild edema noted to bilateral lower extremities ulcerations noted mild dry scaly skin in a moccasin like distribution bilaterally Nails 1 through 10 were thickened elongated yellow and crumbly with subungual debris. They were painful to palpation 07250 on the right 52317 on the left. VASC: DP /PT were nonpalpable bilateral. Capillary refill time < 3 seconds Digits 1-5 bilateral NEURO: Machias Fei 5.07 monofilament was diminished B/L. Vibratory sensation was diminished b/l. Mild peripheral neuropathy noted in a stocking- glove orientation Musculoskeletal: Muscle strength was +5 over 5 all intrinsic and extrinsic muscles tested. ASSESSMENT 1. Type II diabetes mellitus with neurological manifestations (CMS/HCC) 2. Onychomycosis 3. Pain in left toe(s) 4. Pain in right toe(s) 5. Contact dermatitis and eczema 6. Venous insufficiency (chronic) (peripheral) PLAN The patient was educated on proper diabetic foot care. There educated on the etiology of onychomycosis. Also educated on performing regular inspections of the feet. [facility] to monitor the glucose levels as well. Today the nails were debrided both inlength and thickness 1 through 10. I discussed use of compression stockings as well as elevation. Irecommended topical Lac-Hydrin 12 percent to be applied daily. Return to clinic 2 months CLAUDY Langston documented in this encounterNOSt. [facility] + Plan note Future Appointments Appointment Date:07/04/2023 11:00:00 AM Scheduled Provider:Claudette Rowan Location:[facility] Appointment Type: Open Future Scheduled Tests Laboratory* HgbA1c 04/11/23 * TSH With T4fr Reflex 04/11/23 * Vitamin D 25 Hydroxy 04/11/23 * CBC w/ Auto Diff 04/11/23 * Comprehensive Metabolic Panel 04/11/23 * Lipid Panel 04/11/23 [facility] Evaluation + Plan note Future Appointments Appointment Date:06/19/2023 02:15:00 PM Scheduled Provider: Location:[facility] Appointment Type:Surgery FT Appointment Date:07/04/2023 11:00:00 AM Scheduled Provider:Claudette Rowan Location:[facility] Appointment Type:FM Open Appointment Date:07/04/2023 12:45:00 PM Scheduled Provider:Elda Mckenna PA-C Location:[facility] App[facility]ment Type:[facility] Management - [facility] Diagnosis Type II diabetes mellitus with neurological manifestations (CMS/HCC)- Primary Type II or unspecified type diabetes mellitus with neurological manifestations, not stated as uncontrolled Onychomycosis Dermatophytosis of nail Pain in left toe(s) Pain in right toe(s) Contact dermatitis and eczema Venous insufficiency (chronic) (peripheral) Unspecified venous (peripheral) insufficiency documented in this encounter [facility] noteNo assessment information availableSelect Medical [facility] Work Phone: Hospital course Narrative No data available for this section [facility] Hospital Discharge instructions No data available for this section [facility] No data available for this section [facility] Reason for referral (narrative) , needs referral to [facility] for med management and therapy severe MDD and ENA, PTSD Referred by: Katia MORA, Claudette Mckeon [facility] Summary Purpose Family History No Family History Records Found Advance Directives No Advanced Directives Records FoundNo Advanced Directives Records FoundNo Advanced Directives Records Found Additional Source Comments Care Teams (unrecognized sec tion and content) Sap Project Manager Relationship Specialty Start Date End Date Sudarshan Gill DO [address] [place] [address] PCP - General Family Medicine 03/19/23 Sap Project Manager Relationship Specialty Start Date End Date Sudarshan Gill DO [address] [place] [address] PCP - General Family Medicine 03/19/23 Team Status: Inactive Member Role Status Dates Jimena Larkin Attending Provider Active Start: Skip 2023 End: May 22, 2023 Reason for Visit (unrecogniz ed section and content) Reason Comments DM Foot Care Dm nail carePcp;08/24 22 A1c:7.8 INFORMATION SOURCE (unrecogn ized section and content) DATE CREATED AUTHOR 05/21/2023 [facility] EPIC DATE CREATED AUTHOR AUTHOR'S ORGANIZ ATION 06/01/2023 [facility] DATE CREATED AUTHOR AUTHOR'S ORGANIZ ATION 06/09/2023 [facility] Goals (unrecognized section and content) Goals may be documented in a n alternate section FOR RECORDS PERTAINING TO PATIENTS WHO ARE OR HAVE BEEN ENROLLED IN A CHEMICAL DEPENDENCY/SUBSTANCEABUSE PROGRAM, SOME INFORMATION MAY BE OMITTED. This clinical summary was aggregated from multiple sources. Caution should be exercised in using it in the provision of clinical care. This summary normalizes information from multiple sources, and as a consequence, information in this document may materially change the coding, format and clinical context of patient data. In addition, data may be omitted in some cases. CLINICAL DECISIONS SHOULD BE BASED ON THE PRIMARY CLINICAL RECORDS. [facility] provides no warranty or guarantee of the accuracy or completeness of information in this document.
[2023-06-15 06:11] LABS: Basophils Absolute Auto 0.1 10^3/uL (0.0-0.1); Eosinophils Absolute Auto 0.7 10^3/uL (0.0-0.7); Eosinophils Percent Auto 6.4 % (0.9-7.0); Hematocrit 39.1 % (36.0-48.0); Hemoglobin 12.4 g/dL (12.0-16.0); Immature Granulocytes Abs Auto 0.03 10^3/uL (0.00-0.03); Immature Granulocytes Pct Auto 0.3 % (0.0-0.5); Lymphocytes Absolute Auto 3.8 10^3/uL (1.2-3.8); Lymphocytes Percent Auto 34.1 % (20.5-60.0); Mean Corpuscular HGB Conc 31.7 g/dL (29.9-35.2); Mean Corpuscular Hemoglobin 27.2 pg (26.7-34.0); Mean Corpuscular Volume 85.7 fL (81.0-99.0); Monocytes Absolute Auto 0.6 10^3/uL (0.3-0.8); Monocytes Percent Auto 5.6 % (1.7-12.0); Neutrophils Absolute Auto 5.9 10^3/uL (1.4-6.5); Neutrophils Percent Auto 52.6 % (43.0-75.0); Platelet Count 327 10^3/uL (150-450); Red Blood Count 4.56 10^6/uL (4.20-5.40); Red Cell Distribution Width 14.1 % (11.0-15.0); White Blood Count 11.3 10^3/uL (4.0-11.0)
[2023-06-15 06:31] LABS: HCG Quantitative <1 mIU/mL
[2023-06-15 06:40] LABS: Glucometer 92 mg/dL (74-106)
[2023-06-15] MEDS: LACTATED RINGER'S SOLUTION 1,000 ML 50 ML IV (06:45)
[2023-06-15] MEDS: FERRIC SUBSULFATE 8 ML SOLUTION TOPICAL (08:17)
[2023-06-15] MEDS: HYDROMORPHONE HCL 0.5 MG/0.5 ML SYRINGE IV (08:46)
--- NOTE | 2023-06-15 08:50 | PM.ONB ---
Brief Operative Note Date of procedure: 06/15/23 Pre-op diagnosis general: cervical dysplasia Post-op diagnosis: same as pre-op Procedure: NAME OF PROCEDURE: [leep ] PROCEDURE: Patient was taken back to the Operating Room where she was given general anesthesia without difficulty. She was then placed in the dorsal lithotomy position. She was then prepped and draped in the normal sterile fashion. A weighted speculum was placed into the patient's vagina. The anterior lip of the cervix was identified and grasped with a single-tooth tenaculum. The patient's cervix was then copiously irrigated using vinegar.? Then, a Lugol Solution was also placed onto the patient's cervix which demonstrated increased uptake of the Lugol solution at the [?4 ] o?clock and [9? ] o?clock positions.? At that time, the LEEP portion of the procedure was performed, including both the [? 4] o?clock and 9 ] o?clock positions. The ectocervix was sent out to Pathology. The patient's cervix was then coagulated using suction cautery. Excellent hemostasis was assured.? Monsel Solution was then placed onto the patient's cervix to help maintain adequate hemostasis. All instruments were removed from the patient's vagina. The anterior lip of the cervix demonstrated excellent hemostasis.? The patient tolerated the procedure well. Sponge, lap, and needle counts were correct x 2. The patient was taken to Recovery Room in stable condition. Anesthesia: MAC Surgeon: Shayan Larkin Estimated blood loss (mL): 10 Pathology: other (ecto and endocervical tissue) Condition: stable Disposition: PACU Urinary Catheter Management Urinary Catheter Management Straight: Cath placed during this visit: no
== END 2023-06-15 09:46 | disposition home or self-care (01) ==
PROVIDERS: Visit Provider Obstetrics & Gynecology
PROC: (CPT 940; principal; 2023-06-15 07:30)
DX: R87.610 Atypical squamous cells of undetermined significance on cytologic smear of cervix (ASC-US) (principal); R87.613 High grade squamous intraepithelial lesion on cytologic smear of cervix (HGSIL); E11.9 Type 2 diabetes mellitus without complications; Z79.84 Long term (current) use of oral hypoglycemic drugs; E78.00 Pure hypercholesterolemia, unspecified; I10 Essential (primary) hypertension; F41.9 Anxiety disorder, unspecified; F32.A Depression, unspecified
CPT/HCPCS: 57522; 36415; 82948; 84702; 85025; 88307; J1094; J1170; J2704